=== PATIENT | male | born 1965 | race Caucasian/White ===

== ENCOUNTER 2018-03-30 19:58 | Observation (INO) | payer OTHER ==
[~2018-03-30] VITALS: Ht 193 cm; Wt 127.0 kg
[2018-03-30 20:02] VITALS: BP 105/58
[2018-03-30] MEDS ORDERED: LANTUS (20:08)
[2018-03-30] MEDS ORDERED: METFORMIN HCL500 MG PO (20:08)
[2018-03-30] MEDS ORDERED: NOVOLOG100 UNIT/1 (20:08)
[2018-03-30] MEDS ORDERED: ATORVASTATIN CA40 MG PO (20:09)
[2018-03-30] MEDS ORDERED: LISINOPRIL5 MG PO (20:09)
[2018-03-30] MEDS ORDERED: LIPITOR10 MG (20:09)
[2018-03-30] MEDS ORDERED: UNICOMPLEX M TA1 TA1 PO (20:10)
[2018-03-30] MEDS ORDERED: CALCIUM500 M1 PO (20:10)
[2018-03-30] MEDS ORDERED: MAGOX 400400 MG PO (20:10)
[2018-03-30] MEDS ORDERED: FOLIC ACID1 MG PO (20:11)
[2018-03-30] MEDS ORDERED: VITAMIN D3 COM1 EACH PO (20:11)
[2018-03-30] MEDS ORDERED: GARLIC1 EACH PO (20:11)
[2018-03-30] MEDS ORDERED: OCUVITE TABLET1 EAC1 PO (20:11)
[2018-03-30 21:16] LABS: HEMATOCRIT 52.4 % (42.0-52.0); HEMOGLOBIN 17.4 gm/dL (14.0-18.0); MCH 30.6 pg (26.0-34.0); MCHC 33.3 g/dL (28.0-37.0); MCV 91.9 fL (80.0-100.0); NUCLEATED RBCS 0 /100WBC; PLATELET COUNT* 360 thou/uL (150-400); RDW-CV 13.7 % (10.5-14.5)
[2018-03-30 21:39] LABS: POTASSIUM 4.2 mmol/L (3.5-5.1)
[2018-03-30 21:51] LABS: ALBUMIN 3.7 g/dL (3.4-5.0); CALCIUM 9.7 mg/dL (8.5-10.1); CREATININE 1.5 mg/dL (0.6-1.3); TOTAL BILIRUBIN 0.6 mg/dL (<0.1-1.0); TOTAL PROTEIN 7.5 g/dL (6.4-8.2)
[2018-03-30 22:15] LABS: ABSOLUTE EOSINOPHILS 0.5 thou/uL (0.0-0.7); ABSOLUTE LYMPHOCYTES 7.4 thou/uL (0.8-5.3); ABSOLUTE MONOCYTES 2.6 thou/uL (0.0-1.2); ABSOLUTE NEUTROPHILS 13.4 thou/uL (1.6-8.1)
[2018-03-30 22:16] LABS: PLATELET ESTIMATE ADEQUATE
[2018-03-30 22:17] LABS: CLUMPED PLTS OCCASIONAL
[2018-03-30 22:35] LABS: BE -5.4 mmol/L (-2 to +3); HCO3 20.8 mmol/L (22.0-26.0); PCO2 42.9 mmHg (35.0-45.0); PO2 60.6 mmHg (75.0-100.0); pH 7.304 (7.340-7.450)
[2018-03-30 23:03] VITALS: BP 95/50
[2018-03-30 23:20] VITALS: BP 110/39
[2018-03-31 04:00] VITALS: BP 98/35
[2018-03-31 07:55] VITALS: BP 144/72
[2018-03-31] MEDS ORDERED: PREDNISONE 10 M10 MG PO (09:16)
[2018-03-31] MEDS ORDERED: VENTOLIN HFA 1818 GM INH (09:16)
[2018-03-31 10:08] VITALS: BP 144/72
== END 2018-03-31 10:21 | disposition home or self-care (01) ==
LOC: M.ERS 19:58 → M.2W 21:05 → M.TBA-ER 21:05 → M.2W 22:13
PROVIDERS: Family Medicine; ADMIT Internal Medicine
DX: T59.4X1A Toxic effect of chlorine gas, accidental (unintentional), initial encounter (principal); T20.59XA Corrosion of first degree of multiple sites of head, face, and neck, initial encounter; T22.50XA Corrosion of first degree of shoulder and upper limb, except wrist and hand unspecified site, initial encounter; T24.501A Corrosion of first degree of unspecified site of right lower limb, except ankle and foot, initial encounter; E11.8 Type 2 diabetes mellitus with unspecified complications; J68.0 Bronchitis and pneumonitis due to chemicals, gases, fumes and vapors; R91.1 Solitary pulmonary nodule; F17.210 Nicotine dependence, cigarettes, uncomplicated; Y93.89 Activity, other specified; Y92.89 Other specified places as the place of occurrence of the external cause; Y99.8 Other external cause status; Z79.4 Long term (current) use of insulin; Z89.512 Acquired absence of left leg below knee